=== PATIENT | female | born 1965 ===

== ENCOUNTER 2018-02-07 07:42 | Day surgery (SDC) | payer OTHER ==
[2018-01-31 14:41] VITALS: BMI 29.0
[~2018-02-07 07:42] MED LIST: Ciprofloxacin 0.3% OPTH SOLN OD SCH; Cyclopentolate 1% Opth (2 ml) OD SCH; Flurbiprofen 0.03% Opht SOLN OD SCH; Lactated Ringer's 500 ML IV ONE; Lidocaine 2% MPF (5 ml) Inj ONE; Phenylephrine 2.5% Opht Soln OD SCH; Tropicamide 1% Opht SOLUTION OD SCH
[2018-02-07] MEDS ORDERED: Povidone Iodine Ophthalmic 5% Soln ONE (08:12)
[2018-02-07] MEDS ORDERED: Tobramycin/Dexamethasone OPHT OINT ONE (08:12)
[2018-02-07] MEDS ORDERED: Chondroitin/Hyaluronate Opth Syringe KIT (0.55 ml-0.5 ml) IO ONE (08:12)
[2018-02-07] MEDS ORDERED: Tetracaine 0.5% Ophth (OR ONLY) ONE (08:12)
[2018-02-07] MEDS ORDERED: Hyaluronidase Human, Recombi 150 U/ML VIAL ONE (08:13)
[2018-02-07] MEDS ORDERED: Tobramycin/Dexamethasone (Tobradex) Opth Sol (2.5 ml) ONE (08:13)
[2018-02-07] MEDS ORDERED: Carbachol 0.01% IO ONE (08:13)
[2018-02-07] MEDS ORDERED: Lactated Ringer's 500 ML IV ONE (08:25)
[2018-02-07] MEDS ORDERED: Propofol 10 mg/ml Inj (20 ML) ONE (08:54)
[2018-02-07 09:46] VITALS: PULSE 66
[2018-02-07 10:17] VITALS: BP 108/61; RESP 18; TEMP 97.8; O2SAT 98
--- NOTE | 2018-02-10 06:18 | OP ---
Copied To: Tyshawn Warner MD Attending MD: Tyshawn Warner MD PROCEDURE DATE: 02/07/2018 PREOPERATIVE DIAGNOSIS: CATARACT, RIGHT EYE. POSTOPERATIVE DIAGNOSIS: CATARACT, RIGHT EYE. OPERATIVE PROCEDURE: CATARACT EXTRACTION WITH IMPLANT, RIGHT EYE. ANESTHESIA TYPE: Local, standby. COMPLICATIONS: None. PROCEDURE: Local anesthesia was achieved using a mixture of 1% lidocaine and Amphadase. The patient was then prepped and draped in the usual sterile fashion for ophthalmic surgery. Betadine drops were placed into the eye. A lid speculum was used and a sideport incision was made using a 15 degree blade. Viscoelastic was used to fill the anterior chamber and a 2.7 millimeter slit blade was used to create a surgical opening. Additional viscoelastic was placed into the eye and a capsulorrhexis was performed. Hydrodissection and delineation were then carried out. Phacoemulsification of the nucleus was performed with ease and cortical cleanup was achieved without difficulty. The capsular bag was refilled using viscoelastic and a posterior chamber lens was inserted through the existing wound and placed into the capsular bag and easily centered. All viscoelastic was then aspirated from the eye and Miochol was instilled for good symmetric pupillary constriction. The sideport wound was hydrated as necessary and a good watertight closure was observed at the conclusion of the case. A TobraDex soaked collagen shield was then placed over the eye. The lid speculum was removed. TobraDex ointment was placed onto the eye and a patch and shield were placed. The patient tolerated the procedure well. Tyshawn Warner MD
== END 2018-02-07 10:45 | disposition home or self-care (01) ==
LOC: C.SDS 07:42
PROVIDERS: ATTEND Ophthalmology
DX: H25.11 Age-related nuclear cataract, right eye (principal)
CPT/HCPCS: 66984; J2704; J3470; J7120; V2632